=== PATIENT | male | born 1985 | race Two or more races ===

== ENCOUNTER 2021-05-16 17:32 | Emergency (ER) | payer MEDICAID ==
[2021-05-16] MEDS ORDERED: Bacitracin Oint 1 GM U/D Packet TOP ONE (18:21)
--- NOTE | 2021-05-16 18:26 | EDM.PDOC ---
ED HPI GENERAL MEDICAL PROBLEM - General Chief Complaint: Laceration Stated Complaint: CUT LT LEG Time Seen by Provider: 05/16/21 18:05 Source of Information: Reports: Patient, Old Records History Limitations: Reports: No Limitations - History of Present Illness INITIAL COMMENTS - FREE TEXT/NARRATIVE: 36 yo male was mowing his lawn with a push mower and something flew out lacer ating his L martell. He is UTD on his vaccines. Here for repair. Walked in without issue. Onset: Today, Sudden Onset Date: 05/16/21 Duration: Minutes:, Constant Location: Reports: Lower Extremity, Left Quality: Reports: Dull Severity: Mild Improves with: Reports: None Worsens with: Reports: None Context: Reports: Trauma Associated Symptoms: Reports: No Other Symptoms Treatments [employer]ST[employer]ER: Reports: Other (see below) (none) - Related Data Allergies Allergy/AdvReac Type Severity Reaction Status Date / Time No Known Allergies Allergy Verified 05/16/21 17:55 Home Meds: Home Meds NK [No Known Home Meds] 05/16/21 [History] Past Medical History - Past Health History Medical/Surgical History: Denies Medical/Surgical History Social & Family History - Tobacco Use Tobacco Use Status *Q: Current Every Day Tobacco User Years of Tobacco use: 15 Packs/Tins Daily: 1 - Caffeine Use Caffeine Use: Reports: None - Recreational Drug Use Recreational Drug Use: No ED ROS GENERAL - Review of Systems Review Of Systems: See Below Constitutional: Reports: No Symptoms Musculoskeletal: Reports: No Symptoms Skin: Reports: Wound (L martell laceration) Neurological: Reports: No Symptoms ED EXAM, SKIN/RASH Exam: See Below Exam Limited By: No Limitations General Appearance: Alert, WD/WN, No Apparent Distress Extremities: Normal Inspection, Normal Range of Motion, Non-Tender, No Pedal Edema Neurological: Alert, Oriented, CN II-XII Intact, Normal Cognition, No Motor/Sensory Deficits Psychiatric: Normal Affect, Normal Mood Skin: Warm, Dry, Normal Color, No Rash, Wound/Incision (2.4 cm L lower anterior martell transverse lac. No active bleeding.). No: Intact Location, Skin: Lower Extremity, Left Characteristics: Linear Associated features: No: Warmth, Lymphangitis ED SKIN PROCEDURES - Laceration/Wound Repair Left Lower Anterior Leg Appearance: Subcutaneous, Linear, Mildly Contaminated Distal NVT: Neuro & Vascular Intact, No Tendon Injury Anesthetic Type: Local Local Anesthesia - Lidocaine (Xylocaine): 1% with EPI Local Anesthetic Volume: 3cc Skin Prep: Saline Saline Irrigation (cc's): 60 Exploration/Debridement/Repair: Wound Explored, In a Bloodless Field, Explored to Base, Foreign Material Removed (dirt) Closed with: Sutures Lac/Wound length In cm: 2.3 Suture Size: 5-0 # of Sutures: 5 Suture Type: Nylon, Interrupted, Simple, Mattress Drain Placement: No Sterile Dressing Applied: Nurse Tetanus Status Addressed: Yes Complications: No Course - Vital Signs Last Recorded V/S: Last Vital Signs Temp 36.4 C 05/16/21 18:04 Pulse 99 05/16/21 18:04 Resp 16 05/16/21 18:04 BP 140/87 05/16/21 18:04 Pulse Ox 96 05/16/21 18:04 - Orders/Labs/Meds Orders: Active Orders 24 hr Category Date Time Status Bacitracin [Bacitracin Oint 1 GM] Med 05/16/21 18:21 Once 1 dose TOP ONETIME ONE Departure - Departure Time of Disposition: 18:35 Disposition: Home, Self-Care 01 Condition: Good Clinical Impression: Laceration of right lower leg Qualifiers: Encounter type: initial encounter Qualified Code(s): S81.811A - Laceration without foreign body, right lower leg, initial encounter - Discharge Information *PRESCRIPTION DRUG MONITORING PROGRAM REVIEWED*: Not Applicable *COPY OF PRESCRIPTION DRUG MONITORING REPORT IN PATIENT FRANCIE: Not Applicable Instructions: Laceration Care, Adult, [id number] Referrals: PCP,None [Primary Care Provider] - Additional Instructions: Clean wound twice daily with soap and water. Dry. Apply antibiotic ointment and a new dressing. Use acetaminophen for pain relief. Stitches out in 9-10 days. Recheck sooner for signs of infection. Keep wound clean for 3 days. Sepsis Event Note (ED) - Evaluation Sepsis Screening Result: No Definite Risk - Focused Exam Vital Signs: Vital Signs Temp Pulse Resp BP Pulse Ox 05/16/21 18:04 36.4 C 99 16 140/87 96 05/16/21 17:51 36.4 C 99 16 140/87 96 - My Orders Last 24 Hours: My Active Orders 05/16/21 18:21 Bacitracin [Bacitracin Oint 1 GM] 1 dose TOP ONETIME ONE - Assessment/Plan Last 24 Hours: My Active Orders 05/16/21 18:21 Bacitracin [Bacitracin Oint 1 GM] 1 dose TOP ONETIME ONE
== END 2021-05-16 18:40 | disposition home or self-care (01) ==
LOC: JP.ED 17:32
DX: S81.812A Laceration without foreign body, left lower leg, initial encounter (principal); Z72.0 Tobacco use; W26.8XXA Contact with other sharp object(s), not elsewhere classified, initial encounter
CPT/HCPCS: 12001; 99282-25